=== PATIENT | male | born 1935 | race Caucasian/White ===

== ENCOUNTER 2018-12-23 08:17 | Outpatient (REF) | payer MEDICARE, MEDICAID, SELFPAY ==
[2018-12-23 12:35] LABS: HCT 33.4 % (40.0-50.0); HGB 11.3 g/dL (13.5-17.5); Mean Corp. HGB Concentration 33.8 g/dL (32.0-36.0); Mean Corpuscular Hemoglobin 30.4 pg (27.0-33.0); Mean Corpuscular Volume 89.8 fL (80-95); Mean Platelet Volume 11.2 fL (8.0-11.0); Platelet Count 259 x1000/uL (130-400); RBC 3.72 m/cumm (4.50-6.00); RBC Distribution Width 13.2 % (11.8-14.1); White Blood Cell Count 7.11 k/cumm (4.4-10.8)
[2018-12-23 14:00] LABS: Anion Gap 8.9 mmol/L (3-11); BUN 28 mg/dL (7-18); CO2 28.1 mmol/L (21.0-32.0); CREATININE 1.29 mg/dL (0.70-1.30); Calcium 9.1 mg/dL (8.5-10.1); Chloride 101 mmol/L (98-107); Cholesterol 186 mg/dL (50-200); Estimated GFR 53.46 (mL/min/1.73m2); Ferritin 113 ng/mL (8-388); Glucose 116 mg/dL (70-100); HDL Cholesterol 54 mg/dL (40-60); LDL CHOLESTEROL 116 mg/dL (<100); Potassium 4.2 mmol/L (3.5-5.1); Sodium 138 mmol/L (136-145); Triglyceride 69 mg/dL (30-150); Vitamin B12 571 pg/mL (193-986)
== END 2018-12-23 08:37 ==
LOC: NCHCN 08:17
PROVIDERS: PCP Family Medicine; Visit Provider Family Medicine
DX: E78.5 Hyperlipidemia, unspecified (principal); D64.9 Anemia, unspecified; Z79.899 Other long term (current) drug therapy
CPT/HCPCS: 80048; 80061; 83721; 85027; 82607; 82728

== ENCOUNTER 2019-12-29 11:05 | Outpatient (REF) | payer MEDICARE, MEDICAID, SELFPAY ==
[2019-12-29 19:59] LABS: HCT 34.1 % (40.0-50.0); HGB 11.4 g/dL (13.5-17.5); Mean Corp. HGB Concentration 33.4 g/dL (32.0-36.0); Mean Corpuscular Hemoglobin 30.5 pg (27.0-33.0); Mean Corpuscular Volume 91.2 fL (80-95); Mean Platelet Volume 11.3 fL (8.0-11.0); Platelet Count 272 x1000/uL (130-400); RBC 3.74 m/cumm (4.50-6.00); RBC Distribution Width 12.8 % (11.8-14.1)
[2019-12-29 20:21] LABS: ALT 33 U/L (16-63); AST 22 U/L (15-37); Albumin 3.5 g/dL (3.4-5.0); Alkaline Phosphatase 130 U/L (46-116); Anion Gap 7.7 mmol/L (3-11); BUN 23 mg/dL (7-18); Bilirubin, Total 0.6 mg/dL (0.2-1.0); CO2 29.3 mmol/L (21.0-32.0); CREATININE 1.25 mg/dL (0.70-1.30); Calcium 8.6 mg/dL (8.5-10.1); Chloride 106 mmol/L (98-107); Glucose 81 mg/dL (74-106); Potassium 4.5 mmol/L (3.5-5.1); Sodium 143 mmol/L (136-145)
== END 2019-12-29 11:25 ==
LOC: NCHCN 11:05
PROVIDERS: PCP Family Medicine; Visit Provider Family Medicine
DX: N18.3 Chronic kidney disease, stage 3 (moderate) (principal); C34.32 Malignant neoplasm of lower lobe, left bronchus or lung
CPT/HCPCS: 80053; 85027

== ENCOUNTER 2020-04-12 16:09 | Outpatient (REF) | payer MEDICARE, MEDICAID, SELFPAY ==
[2020-04-14 00:05] LABS: COVID-19 RT-PCR Result NEGATIVE (Negative)
== END 2020-04-12 16:29 ==
LOC: NCHCN 16:09
PROVIDERS: PCP Family Medicine; Visit Provider Nurse Practitioner Family
DX: J06.9 Acute upper respiratory infection, unspecified (principal)
CPT/HCPCS: U0003

== ENCOUNTER 2020-12-16 16:00 | Outpatient (REF) | payer MEDICARE, MEDICAID, SELFPAY ==
[2020-12-16 14:00] LABS: HCT 33.6 % (40.0-50.0); HGB 11.1 g/dL (13.5-17.5); MCH 29.8 pg (27.0-33.0); MCV 90.1 fL (80-95); MPV 10.9 fL (8.0-11.0); Platelet Count 283 10^3/uL (130-400); RBC 3.73 10^6/uL (4.36-5.78); RDW 12.5 % (11.8-14.1); RDW-SD 41.2 fL; WBC 6.64 10^3/uL (4.4-10.8)
[2020-12-16 14:46] LABS: ALT 18 U/L (16-63); AST 15 U/L (15-37); Albumin 3.5 g/dL (3.4-5.0); Alkaline Phosphatase 115 U/L (46-116); Anion Gap 8.1 mmol/L (3-11); BUN 18 mg/dL (7-18); Bilirubin, Total 0.7 mg/dL (0.2-1.0); CO2 27.9 mmol/L (21.0-32.0); CREATININE 1.4 mg/dL (0.70-1.30); Chloride 106 mmol/L (98-107); Ferritin 89 ng/mL (26-388); Folate 19.5 ng/mL (8.6-20.0); Glucose 91 mg/dL (74-106); Potassium 4.4 mmol/L (3.5-5.1); Sodium 142 mmol/L (136-145)
== END 2020-12-16 16:01 | disposition home or self-care (01) ==
LOC: NCHCN 16:00
PROVIDERS: PCP Family Medicine; Visit Provider Family Medicine
DX: N18.30 Chronic kidney disease, stage 3 unspecified (principal); D64.9 Anemia, unspecified
CPT/HCPCS: 80053; 85027; 82728; 82746

== ENCOUNTER 2021-06-13 13:04 | Outpatient (REF) | payer MEDICARE, MEDICAID, SELFPAY ==
[2021-06-13 14:42] LABS: HCT 33.2 % (40.0-50.0); HGB 10.8 g/dL (13.5-17.5); MCH 29.3 pg (27.0-33.0); MCHC 32.5 % (32.0-36.0); MPV 10.8 fL (8.0-11.0); Platelet Count 278 10^3/uL (130-400); RBC 3.69 10^6/uL (4.36-5.78); RDW-SD 42.8 fL; WBC 5.77 10^3/uL (4.4-10.8)
[2021-06-13 15:08] LABS: Anion Gap 8.6 mmol/L (3-11); BUN 24 mg/dL (7-18); CO2 28.4 mmol/L (21.0-32.0); CREATININE 1.3 mg/dL (0.70-1.30); Calcium 9.2 mg/dL (8.5-10.1); Chloride 107 mmol/L (98-107); Estimated GFR 52.59 (mL/min/1.73m2); Glucose 114 mg/dL (74-106); Potassium 4.2 mmol/L (3.5-5.1); Sodium 144 mmol/L (136-145)
== END 2021-06-13 13:05 | disposition home or self-care (01) ==
LOC: NCHCN 13:04
PROVIDERS: PCP Family Medicine; Visit Provider Family Medicine
DX: N18.30 Chronic kidney disease, stage 3 unspecified (principal); D64.9 Anemia, unspecified
CPT/HCPCS: 80048; 85027

== ENCOUNTER 2022-03-23 18:11 | Emergency (ER) | payer MEDICARE, MEDICAID, SELFPAY ==
[2022-03-23 18:20] VITALS: BP 116/54; PULSE 84; RESP 16; TEMP 36.5; O2SAT 98
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
--- NOTE | 2022-03-23 19:00 | DI.RAD_ITS ---
Exam(s) XR LUMBAR SPINE COMPLETE EXAM: XR LUMBAR SPINE COMPLETE CLINICAL HISTORY: s/p fall onto back, r/o acute fracture. TECHNIQUE: 2D digital imaging was performed. COMPARISON: No exams were available for comparison FINDINGS: Five views There is no evidence of acute fracture or listhesis. No pars defects. There is moderate multilevel disc space narrowing throughout the lumbosacral spinal column. No scoliosis. No osseous lesions. S acroiliac joints appear unremarkable. Mild multilevel facet arthrosis IMPRESSION: Degenerative changes. No acute fractures. No listhesis DATA REPOSITORY: RADIATION DOSE DELIVERED:
[2022-03-23] MEDS: diazePAM 2 MG TAB PO (19:46)
[2022-03-23] MEDS: oxyCODONE 5 MG TAB PO (19:46)
[2022-03-23] MEDS: Lidocaine 5% Patch 1 PATCH TP (19:47)
--- NOTE | 2022-03-23 20:11 | DI.VRAD_ITS ---
PROCEDURE INFORMATION: Exam: XR Lumbosacral Spine Exam date and time: 03/23/2022 7:31 PM Age: 86 years old Clinical indication: Injury or trauma; Fall; Sprain or strain, lumbar ligaments TECHNIQUE: Imaging protocol: XR of the lumbosacral spine. Views: 4 or 5 views. COMPARISON: No relevant prior studies available. FINDINGS: Bones/joints: There is straightening of lumbar lordosis. No subluxations are identified. There is multilevel hsfu-[id number] disc space narrowing as well as moderate productive endplate spurring consistent with spondylosis. There is multilevel mild anterior wedging of lower thoracic and lumbar vertebra, all of which appear chronic. No acute displaced fractures are identified. Osseous mineralization is normal. There are no inflammatory osseous erosive changes. No focal osseous lesions are identified. There are mild degenerative changes of the sacroiliac joints. Soft tissues: Unremarkable. Vasculature: There is moderate atherosclerotic calcification of the abdominal aorta and common iliac arteries. IMPRESSION: 1. No acute fractures or subluxations identified. 2. Moderate degenerative changes of the lumbar spine as described above. 3. Mild anterior wedging of multiple lower thoracic and lumbar vertebra, which appear chronic. Dictated and Authenticated by: Ascencion Salamanca MD. Ordering:ALISSON Macdonald MD
[2022-03-23 21:02] VITALS: BP 146/65; PULSE 67; RESP 16; O2SAT 98
== END 2022-03-23 21:10 | disposition home or self-care (01) ==
PROVIDERS: Emergency Provider Physician Assistant; PCP Family Medicine
DX: S30.0XXA Contusion of lower back and pelvis, initial encounter (principal); W17.89XA Other fall from one level to another, initial encounter
CPT/HCPCS: 99283; 72110

== ENCOUNTER 2022-06-28 13:13 | Outpatient (REF) | payer MEDICARE, MEDICAID, SELFPAY ==
[2022-06-28 14:04] LABS: HCT 30.8 % (40.0-50.0); HGB 10.2 g/dL (13.5-17.5); MCH 29.8 pg (27.0-33.0); MCHC 33.1 % (32.0-36.0); MCV 90 fL (80-95); MPV 10.9 fL (8.0-11.0); Platelet Count 300 10^3/uL (130-400); RBC 3.42 10^6/uL (4.36-5.78); RDW 13.1 % (11.8-14.1); RDW-SD 43.2 fL; WBC 6.24 10^3/uL (4.4-10.8)
[2022-06-28 14:35] LABS: ALT 18 U/L (16-63); AST 17 U/L (15-37); Albumin 3.2 g/dL (3.4-5.0); Alkaline Phosphatase 142 U/L (46-116); Anion Gap 7.4 mmol/L (3-11); BUN 24 mg/dL (7-18); Bilirubin, Total 0.5 mg/dL (0.2-1.0); CO2 29.6 mmol/L (21.0-32.0); CREATININE 1.2 mg/dL (0.70-1.30); Chloride 104 mmol/L (98-107); Estimated GFR 57.54 (mL/min/1.73m2); Folate 14.5 ng/mL (8.6-20.0); Glucose 114 mg/dL (74-106); Potassium 4.1 mmol/L (3.5-5.1); Sodium 141 mmol/L (136-145); Total Protein 7.7 g/dL (6.4-8.2)
== END 2022-06-28 13:14 | disposition home or self-care (01) ==
LOC: NCHCN 13:13
PROVIDERS: PCP Family Medicine; Visit Provider Family Medicine
DX: D64.9 Anemia, unspecified (principal); N18.30 Chronic kidney disease, stage 3 unspecified
CPT/HCPCS: 80053; 85027; 82746

== ENCOUNTER 2023-04-23 16:15 | Emergency (ER) | payer MEDICARE, MEDICAID, SELFPAY ==
[2023-04-23 16:33] VITALS: BP 97/52; PULSE 64; RESP 14; TEMP 37; O2SAT 97
--- NOTE | 2023-04-23 17:00 | DI.RAD_ITS ---
Exam(s) XR CHEST 2V PA LATERAL EXAM: XR CHEST 2V PA LATERAL CLINICAL HISTORY: couh and chills. TECHNIQUE: 2D digital imaging was performed. COMPARISON: CT CHEST WITHOUT CONTRAST from 01/13/2018 CR CHEST 2 VIEWS PA,LAT from 01/24/2018 FINDINGS: 2 views: Heart size is normal. The mediastinum is not widened. Calcific scarring in the right lung is unchanged. The previously present nodular infiltrate in the l eft lower lobe is no longer seen on the frontal view but on the lateral view there is a pleural based density noted which measures approximately 9 by 3 cm. . Also mild infiltrate in left lower lobe retrocardiac region although this may be scarring. IMPRESSION: Left lung findings as above. Recommend follow-up CT scan. DATA REPOSITORY: RADIATION DOSE DELIVERED:
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
--- NOTE | 2023-04-23 17:45 | RT.EKG_ITS ---
APPROVED REPORT Exam: Resting ECG Reason for Exam: cough chills Patient Location: E HR:93 bpm ECG Measurements Heart Rate 93 AXIS NM 183 P 65 QRSd 94 QRS -32 QT 359 T -4 QTc 442 Conclusion Sinus rhythm...normal P axis, V-rate 60- 99 Ventricular premature complex...V complex w/ short R-R interval Left axis deviation...QRS axis (-30,-90) No ST changes c/w ischemia
--- NOTE | 2023-04-23 17:48 | DI.VRAD_ITS ---
PROCEDURE INFORMATION: Exam: XR Chest Exam date and time: 04/23/2023 5:28 PM Age: 88 years old Clinical indication: Other: Cough, chills TECHNIQUE: Imaging protocol: Radiologic exam of the chest. Views: 2 views. COMPARISON: CR CHEST 2 VIEWS PA,LAT 01/24/2018 8:36 AM FINDINGS: Lungs: Left lower lobe fibrosis. No airspace disease. Pleural spaces: Stable pleural calcification. Heart/Mediastinum: Unremarkable. No cardiomegaly. Bones/joints: Unremarkable. IMPRESSION: Left lower lobe fibrosis. This is seen best on the lateral view and corresponds to prior lung mass. Could represent post surgical or radiation change. Correlate clinically. Consider follow-up chest CT with contrast. Dictated and Authenticated by: Julius Moctezuma MD. Ordering:BOB Barrios MD
[2023-04-23 17:58] LABS: Abs Immature Grans 0.02 10^3/uL (0.0-0.06); Absolute Basophil Count 0.05 10^3/uL (0.0-0.2); Absolute Eosinophil Count 0.21 10^3/uL (0.0-0.7); Absolute Monocyte Count 0.75 10^3/uL (0.1-0.8); Absolute Neutrophil Count 5.12 10^3/uL (1.2-6.7); Basophils % 0.7; Eosinophils % 2.9; HCT 33.9 % (40.0-50.0); HGB 11.3 g/dL (13.5-17.5); Immature Grans % 0.3; Lymphocytes % 16.3; MCH 29.6 pg (27.0-33.0); MCHC 33.3 % (32.0-36.0); MCV 89 fL (80-95); MPV 10.2 fL (8.0-11.0); Monocytes % 10.2; Neutrophils % 69.6; Platelet Count 317 10^3/uL (130-400); RBC 3.82 10^6/uL (4.36-5.78); RDW 13.3 % (11.8-14.1); WBC 7.35 10^3/uL (4.4-10.8)
[2023-04-23 18:25] LABS: ALT 30 U/L (16-63); AST 35 U/L (15-37); Albumin 3.3 g/dL (3.4-5.0); Alkaline Phosphatase 210 U/L (46-116); Anion Gap 7.4 mmol/L (3-11); BUN 20 mg/dL (7-18); Bilirubin, Total 0.4 mg/dL (0.2-1.0); CO2 27.6 mmol/L (21.0-32.0); CREATININE 1.5 mg/dL (0.70-1.30); Calcium 8.9 mg/dL (8.5-10.1); Chloride 103 mmol/L (98-107); Estimated GFR 45.06 (mL/min/1.73m2); Glucose 108 mg/dL (74-106); Potassium 4.3 mmol/L (3.5-5.1); Sodium 138 mmol/L (136-145); Total Protein 8.2 g/dL (6.4-8.2)
[2023-04-23 19:04] VITALS: BP 108/65; PULSE 90; RESP 16; O2SAT 98
== END 2023-04-23 19:07 | disposition home or self-care (01) ==
PROVIDERS: Emergency Provider Emergency Medicine; PCP Family Medicine
DX: I35.0 Nonrheumatic aortic (valve) stenosis (principal); R05.9 Cough, unspecified
CPT/HCPCS: 36415; 80053; 93005; 99284; 71046; 85025; 93010; 99283